=== PATIENT | female | born 1985 | race Caucasian/White ===

== ENCOUNTER 2020-07-19 09:42 | Emergency (ER) | payer OTHER ==
[2020-07-19 11:14] LABS: BILIRUBIN,URINE NEGATIVE (NEGATIVE); GLUCOSE, URINE (UA) NEGATIVE (NEGATIVE); KETONES,URINE (UA) NEGATIVE (NEGATIVE); LEUKOCYTE ESTERASE, URINE NEGATIVE (NEGATIVE); NITRITE,URINE NEGATIVE (NEGATIVE); OCCULT BLOOD,URINE SMALL (NEGATIVE); PH,URINE 6.5 PH (5.0-7.5); PROTEIN,URINE NEGATIVE (NEGATIVE); UROBILINOGEN,URINE 0.2 (NORMAL) E.U./dL (NORMAL)
[2020-07-19 11:17] LABS: CLARITY,URINE CLEAR (CLEAR); HCG UR QUAL NEGATIVE
--- NOTE | 2020-07-19 11:17 | ED Physician Documentation ---
PD HPI BACK PAIN - Stated complaint Stated Complaint: BACK/LEG PX - Chief complaint Chief Complaint: Back Pain - History obtained from History obtained from: Patient - History of Present Illness Timing - onset: How many days ago (2-3) Timing - duration: Days (2-3) Timing - details: Gradual onset, Still present Location: Lower, Left Quality: Pain, Aching Associated symptoms: Weakness (left leg feels weak due to pain and leg "not working". She feels normal sensation and can move foot and ankle/lower leg okay when not walking.). No: Fever, Numbness Improves with: No: Rest, Meds Worsened by: Movement, Twisting, Palpation Contributing factors: Twisting. No: Trauma Similar symptoms before: Diagnosis (low back pain with L4 herniated disc. Pain often.) Review of Systems Constitutional: denies: Fever, Chills, Myalgias Nose: denies: Rhinorrhea / runny nose, Congestion Throat: denies: Sore throat Respiratory: denies: Cough : denies: Incontinent Neurologic: denies: Generalized weakness, Numbness PD PAST MEDICAL HISTORY - Past Medical History Past Medical History: Yes Cardiovascular: None Respiratory: None Neuro: None Endocrine/Autoimmune: None GI: None [employer]: None : None HEENT: None Psych: None Musculoskeletal: Osteoarthritis, Chronic back pain Derm: None - Past Surgical History Past Surgical History: Yes HEENT: Other - Present Medications Home Medications: Ambulatory Orders Medication Instructions Recorded Confirmed Amitriptyline HCl 25 mg PO QPM #30 tablet 07/19/20 Lidocaine Patch 5% [Lidoderm Patch] 1 patch TOP DAILY PRN #10 patch 07/19/20 Meloxicam 7.5 mg PO DAILY #30 tablet 07/19/20 Oxycodone HCl/Acetaminophen 1 each PO Q6H PRN #20 tablet 07/19/20 [Percocet 5-325 mg Tablet] Tizanidine HCl 4 mg PO TID PRN #25 capsule 07/19/20 dexAMETHasone [Decadron] 4 mg PO DAILY #5 tablet 07/19/20 - Allergies Allergies/Adverse Reactions: Allergies Allergy/AdvReac Type Severity Reaction Status Date / Time No Known Drug Allergies Allergy Verified 07/19/20 09:47 - Social History Does the pt smoke?: No Smoking Status: Never smoker Does the pt drink ETOH?: Yes Does the pt have substance abuse?: No - Immunizations Immunizations are current?: Yes - POLST Patient has POLST: No PD ED PE NORMAL - Vitals Vital signs reviewed: Yes - General General: Alert and oriented X 3, Well developed/nourished, Other (seems in pain due to lower left back. ) - Abdomen Abdomen: Soft, Non tender - Back Back: No spinal TTP (left lower at SI area tender) - Derm Derm: Normal color, Warm and dry, No rash - Neuro Neuro: Alert and oriented X 3, No motor deficit (isolated testing of muscle groups okay. Favoring weight on left leg with standing. ), No sensory deficit (dermatomal sensation present. Normal knee reflexes.), Normal speech Results - Vitals Vitals: Vital Signs - 24 hr 07/19/20 07/19/20 09:47 12:22 Temperature 36.8 C 36.4 C L Heart Rate 94 67 Respiratory 18 18 Rate Blood Pressure 126/80 121/79 O2 Saturation 98 97 Oxygen O2 Source Room air - Labs Labs: Laboratory Tests 07/19/20 11:00 Urine Color LIGHT YELLOW Urine Clarity CLEAR Urine pH 6.5 Ur Specific [place] 1.020 Urine Protein NEGATIVE Urine Glucose (UA) NEGATIVE Urine Ketones NEGATIVE Urine Occult Blood SMALL H Urine Nitrite NEGATIVE Urine Bilirubin NEGATIVE Urine Urobilinogen 0.2 (NORMAL) Ur Leukocyte Esterase NEGATIVE Urine RBC 0-5 Urine WBC 0-3 Ur Squamous Epith Cells RARE Squamous Urine Bacteria None Seen Ur Microscopic Review INDICATED Urine Culture Comments NOT INDICATED Urine HCG, Qual NEGATIVE PD MEDICAL DECISION MAKING - ED course Complexity details: considered differential (back pain with sciatica, with weakness of leg seeming related to pain of movement as she has normal sensation and isolated muscle strength (dorsi/plantarflex foot, leg extension,flexion, etc).), d/w patient Departure - Departure Disposition: 01 Home, Self Care Clinical Impression: Low back pain Qualifiers: Chronicity: acute Back pain laterality: left Sciatica presence: with sciatica Sciatica laterality: sciatica of left side Qualified Code(s): M54.42 - Lumbago with sciatica, left side Condition: Stable Record reviewed to determine appropriate education?: Yes Instructions: ED Sciatica Follow-Up: HUAN Kruger [Provider Group] Prescriptions: Amitriptyline HCl 25 mg PO QPM #30 tablet dexAMETHasone [Decadron] 4 mg PO DAILY #5 tablet Lidocaine Patch 5% [Lidoderm Patch] 1 patch TOP DAILY PRN #10 patch PRN Reason: pain Meloxicam 7.5 mg PO DAILY #30 tablet Oxycodone HCl/Acetaminophen [Percocet 5-325 mg Tablet] 1 each PO Q6H PRN #20 tablet PRN Reason: pain Tizanidine HCl 4 mg PO TID PRN #25 capsule PRN Reason: Spasms Comments: Heat gentle stretching and massage or chiropractic are good for the low back. Use some anti-inflammatory such as ibuprofen or naproxen. To that add Tylenol or oxycodone as needed for pain. Tizanidine for muscle spasms. Decadron anti-inflammatory daily for 5 more days. Recheck if not improving well over the next several days and back to baseline within several days to week. At that point you could also take daily anti-inflammatory such as meloxicam and a medicine to help with the chronic back pain. We could try one called amitriptyline nightly to help with some of the nerve pain. Discharge Date/Time: 07/19/20 12:23
[2020-07-19 11:26] LABS: BACTERIA,URINE None Seen /HPF (None Seen); RBC,URINE 0-5 /HPF (0-5); SQUAMOUS EPITHELIAL CELL,UR RARE Squamous (<= Few)
[2020-07-19] MEDS ORDERED: methocarbamoL 500 MG TABLET PO STA (11:36)
[2020-07-19] MEDS ORDERED: HYDROmorphone 2 MG/ML VIAL IM STA (11:36)
[2020-07-19] MEDS ORDERED: DEXAMETHASONE 10 MG/ML VIAL PO STA (11:36)
[2020-07-19] MEDS ORDERED: CHERRY SYRUP 10 ML UDC PO ONE (11:36)
[2020-07-19] MEDS ORDERED: KETOROLAC 30 MG/ML VIAL IM STA (11:36)
[2020-07-19 12:23] VITALS: BP 121/79
== END 2020-07-19 12:23 | disposition home or self-care (01) ==
LOC: ED 09:42
DX: M54.42 Lumbago with sciatica, left side (principal)
CPT/HCPCS: 81001; 81025; 96372; 99284; 99285; A9270; J1170; 81003; 87086